=== PATIENT | female | born 1985 | race Caucasian/White ===

== ENCOUNTER 2020-04-18 11:29 | Outpatient (CLI) | payer OTHER ==
[~2020-04-18 11:29] MED LIST: PEPCID40 MG PO; ZOFRAN4 MG PO
== END 2020-04-18 12:23 | disposition home or self-care (01) ==
LOC: NST 11:29
PROVIDERS: ATTEND Obstetrics & Gynecology Maternal & Fetal Medicine
DX: Z34.83 Encounter for supervision of other normal pregnancy, third trimester (principal)

== ENCOUNTER 2020-04-26 09:44 | Outpatient (CLI) | payer OTHER | END 2020-04-26 11:03 | disposition home or self-care (01) | LOC: NST 09:44 | PROVIDERS: ATTEND Obstetrics & Gynecology Maternal & Fetal Medicine | DX: Z34.83 Encounter for supervision of other normal pregnancy, third trimester (principal) ==

== ENCOUNTER 2020-04-26 10:00 | Inpatient (IN) | payer OTHER ==
[~2020-04-26] VITALS: Ht 167.6 cm; Wt 3.6 kg
[2020-05-16] MEDS ORDERED: PRENATAL TABLE1 EAC3 PO (06:04)
[2020-05-19] MEDS ORDERED: KETO10TA2 PO (09:59)
[2020-05-19] MEDS ORDERED: OXYC1TAB9 PO (09:59)
== END 2020-05-19 15:43 | disposition home or self-care (01) | DRG 785 ==
LOC: SURG-SUITE 05-16 05:25 → O/R 05-16 05:25 → LDR 05-16 07:00 → SURG-SUITE 05-16 10:40
PROVIDERS: ADMIT Obstetrics & Gynecology Maternal & Fetal Medicine; ATTEND Obstetrics & Gynecology Maternal & Fetal Medicine
PROC: 0UB70ZZ Excision of Bilateral Fallopian Tubes, Open Approach (ICD-10-PCS; 2020-05-16)
PROC: 0UB90ZZ Excision of Uterus, Open Approach (ICD-10-PCS; 2020-05-16)
PROC: 4A1HXFZ Monitoring of Products of Conception, Cardiac Rhythm, External Approach (ICD-10-PCS; 2020-05-16)
PROC: 10D00Z1 Extraction of Products of Conception, Low, Open Approach (ICD-10-PCS; principal; 2020-05-16 07:00)
DX: O34.211 Maternal care for low transverse scar from previous cesarean delivery (principal); Z30.2 Encounter for sterilization; O34.13 Maternal care for benign tumor of corpus uteri, third trimester; D25.9 Leiomyoma of uterus, unspecified; Z3A.39 39 weeks gestation of pregnancy; Z37.0 Single live birth; Z20.822 Contact with and (suspected) exposure to COVID-19

== ENCOUNTER 2020-05-10 10:04 | Outpatient (CLI) | payer OTHER | END 2020-05-10 10:55 | disposition home or self-care (01) | LOC: NST 10:04 | PROVIDERS: ATTEND Obstetrics & Gynecology Maternal & Fetal Medicine | DX: Z34.83 Encounter for supervision of other normal pregnancy, third trimester (principal) ==

== ENCOUNTER 2020-08-11 18:40 | Emergency (ER) | payer OTHER ==
[~2020-08-11] VITALS: Ht 167.6 cm; Wt 62.6 kg
[~2020-08-11 18:40] MED LIST changes: +KETO10TA2 PO; +OXYC1TAB9 PO; +PRENATAL TABLE1 EAC3 PO
[2020-08-11] MEDS ORDERED: INTESTINEX680 M1 PO (22:25)
== END 2020-08-11 22:50 | disposition home or self-care (01) ==
LOC: ER 18:40
DX: R19.7 Diarrhea, unspecified (principal); Z11.52 Encounter for screening for COVID-19